=== PATIENT | male | born 1955 | race Caucasian/White ===

== ENCOUNTER 2016-07-26 16:19 | Emergency (ER) | payer MEDICAID, OTHER ==
--- NOTE | 2016-07-26 19:43 | C.PDOC ---
History Of Present Illness 61 yr old male with PMHx of right knee arthritis and chronic pain, presents to the ER for evaluation of right foot pain, gradually developing for the past week. Patient states the pain is localized to the dorsal aspect of the foot and worse with weight bearing. Patient denies direct trauma, injury, chest pain, SOB , dyspnea, legs swelling, back pain, calf pain, denies deformity, skin changes, weakness or numbness to B/L LEs. No risc factors for DVT, PE. Time Seen by Provider: 07/26/16 18:19 Chief Complaint (Nursing): Lower Extremity Problem/Injury History Per: Patient History/Exam Limitations: no limitations Onset/Duration Of Symptoms: Gradual (Past week) Current Symptoms Are (Timing): Still Present Recent travel outside of the [place]: No Past Medical History Reviewed: Historical Data, Nursing Documentation, Vital Signs Vital Signs: Last Vital Signs Temp 98.1 F 07/26/16 20:44 Pulse 72 07/26/16 20:44 Resp 17 07/26/16 20:44 BP 122/72 07/26/16 20:44 Pulse Ox 96 07/26/16 20:48 - Medical History PMH: Arthritis, HTN Surgical History: Tonsillectomy Family History: States: Hypertension - Social History Hx Tobacco Use: No Hx Alcohol Use: Yes Hx Substance Use: No - Immunization History Hx Tetanus Toxoid Vaccination: No Hx Influenza Vaccination: No Hx Pneumococcal Vaccination: No Review Of Systems Except As Marked, All Systems Reviewed And Found Negative. Cardiovascular: Negative for: Chest Pain Respiratory: Negative for: Shortness of Breath Musculoskeletal: Positive for: Foot Pain (Right foot). Negative for: Back Pain , Leg Pain Neurological: Negative for: Weakness, Numbness Physical Exam - Physical Exam Appears: Well, Non-toxic, No Acute Distress Skin: Normal Color, Warm, No Rash, No Ecchymosis Head: Atraumatic, Normacephalic Extremity: Normal ROM (Right foot), Tenderness (Right foot over 5th MTB with nos edema. No cellulitis, no palpable deformity.), No Pedal Edema, No Calf Tenderness (Right), No Deformity, No Swelling Neurological/Psych: Oriented x3, Normal Speech, Normal Motor, Normal Sensation, Normal Reflexes ED Course And Treatment O2 Sat by Pulse Oximetry: 96 - Other Rad X-Ray - Right Foot X-Ray: Interpreted by Me, Viewed By Me Interpretation: (+) DJD, no acute fx or dislocation Progress Note: On re-eavluation, pt is afebrile, hemodynamicaly stable. Non- toxic. Ambulatory in ED with stable gait. Right foot/anmkle: FAROM, no neurovascular deficits, no clelulitis, no calf pain. neurologicaly intact. Xray review and c/w DJD, arthralgia/arthritis. Pt advised. ref. to F/u with finance professor in 2-3 days for re-eval. return if any new changes, Medical Decision Making Medical Decision Making: PLAN: * X-Ray - Right Foot * Tramadol PO * Prednisone PO Disposition Counseled Patient/Family Regarding: Studies Performed, Diagnosis, Need For Followup, Rx Given - Disposition Referrals: Podiatry Clinic [Outside] Disposition: HOME/ ROUTINE Disposition Time: 19:10 Condition: GOOD Additional Instructions: Follow up with Continuous Miner Operator in 2-3 days for re-evaluation. Return to ED if any worsening or new changes. 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 - Scribe Statement The provider has reviewed the documentation as recorded by the Scribe Aga Menjivar All medical record entries made by the Attilaibe were at my direction and personally dictated by me. I have reviewed the chart and agree that the record accurately reflects my personal performance of the history, physical exam, medical decision making, and the department course for this patient. I have also personally directed, reviewed, and agree with the discharge instructions and disposition.
[2016-07-26 20:45] VITALS: BP 122/72; PULSE 72; RESP 17; TEMP 98.1
[2016-07-26 20:46] VITALS: O2SAT 96
--- NOTE | 2016-07-27 09:57 | RAD ---
PROCEDURE: Right Foot Radiographs. HISTORY: pain COMPARISON: None. FINDINGS: BONES: Normal. No fracture. JOINTS: Normal. SOFT TISSUES: Mild soft tissue swelling and vascular calcification are noted. OTHER FINDINGS: None. IMPRESSION: No evidence of acute fracture or dislocation. Mild soft tissue swelling and vascular calcification are noted.
== END 2016-07-26 20:47 | disposition home or self-care (01) ==
LOC: C.ER 16:19
DX: M25.571 Pain in right ankle and joints of right foot (principal)

== ENCOUNTER 2016-08-08 12:55 | Emergency (ER) | payer MEDICAID, OTHER ==
[2016-08-08 13:02] VITALS: TEMP 98.2
--- NOTE | 2016-08-08 13:46 | RAD ---
PROCEDURE: Radiographs of the left great toe. COMPARISON: None available FINDINGS: BONES: No acute displaced fracture identified. JOINTS: No dislocation. SOFT TISSUES: Mild soft tissue swelling. Vascular calcifications. Soft tissue calcifications noted within the soft tissues at the level the proximal 2nd and 3rd metatarsals. OTHER FINDINGS: None. IMPRESSION: Mild soft tissue swelling. No acute findings. Correlate clinically.
--- NOTE | 2016-08-08 14:24 | C.PDOC ---
History Of Present Illness 61 year old patient, with a past medical history of arthritis and hypertension, presents to the ED complaining of left great toe pain for the past 4 days. Patient has pain to his left podagra. There is increased pain and inflammation to the region. Patient is requesting a refill of his hypertension medication of Bisamol 5 mg from the [place] for his history of captopril cough. Patient denies trauma, history of gout, fever, numbness, or weakness. Time Seen by Provider: 08/08/16 13:17 Chief Complaint (Nursing): Lower Extremity Problem/Injury History Per: Patient History/Exam Limitations: no limitations Onset/Duration Of Symptoms: Days (4) Current Symptoms Are (Timing): Still Present Severity: Mild Pain Scale Rating Of: 3 Recent travel outside of the [place]: No Past Medical History Reviewed: Historical Data, Nursing Documentation, Vital Signs Vital Signs: Last Vital Signs Temp 98.2 F 08/08/16 12:58 Pulse 82 08/08/16 14:51 Resp 17 08/08/16 14:51 BP 129/68 08/08/16 14:51 Pulse Ox 97 08/08/16 15:23 - Medical History PMH: Arthritis, HTN Surgical History: Tonsillectomy Family History: States: Hypertension - Social History Hx Tobacco Use: No Hx Alcohol Use: Yes Hx Substance Use: No - Immunization History Hx Tetanus Toxoid Vaccination: No Hx Influenza Vaccination: No Hx Pneumococcal Vaccination: No Review Of Systems Except As Marked, All Systems Reviewed And Found Negative. Constitutional: Negative for: Fever Neurological: Negative for: Weakness, Numbness Physical Exam - Physical Exam Appears: Non-toxic, No Acute Distress Skin: Warm, Dry Head: Atraumatic, Normacephalic Eye(s): bilateral: PERRL, EOMI Neck: Normal ROM, Supple Chest: Symmetrical Cardiovascular: Rhythm Regular Respiratory: No Accessory Muscle Use Back: Normal Inspection Extremity: Normal ROM, No Calf Tenderness, Capillary Refill (<2 seconds), Swelling (left podagra (+)erythema) ED Course And Treatment O2 Sat by Pulse Oximetry: 97 (RA) Pulse Ox Interpretation: Normal - Other Rad L great toe X-Ray: Interpreted by Me (neg) Progress Note: Plan: -Colocrys, Indocin. -Left great toe xray Medical Decision Making Medical Decision Making: L podagra pain and swelling, no trauma, classically c/w gouty arthritis- no h/o same. improved with colchicine and indomethacin Disposition Doctor Will See Patient In The: Office Counseled Patient/Family Regarding: Studies Performed, Diagnosis - Disposition Referrals: [facility] [Outside] Disposition: HOME/ ROUTINE Disposition Time: 14:23 Condition: GOOD Additional Instructions: Colchicine 0.6 mg (para attackes acudo de la gota) [place] tableta cada 2 horas hasta Ud tiene diarrhea (maximum 4 mas hoy) Indomethacin 50 mg cada 8 horas para dolor en 2 semanas empieza james Allopurinol 100 mg diario para PREVENIR attackes de la Gota Hipertension: Losartan 50 mg diario Sigue en la Clinica en 2-3 meses para re-evaluacion. Prescriptions: Colchicine 0.6 mg PO DAILY #20 capsule Losartan [Cozaar] 1 tab PO DAILY #30 tab Indomethacin [Indocin] 50 mg PO TID PRN #20 cap PRN Reason: Pain, Moderate (4-7) Allopurinol [Zyloprim] 100 mg PO DAILY #30 tab Instructions: Gout (ED) Print Language: BURKINAN - Clinical Impression Clinical Impression: Gouty arthritis of toe of left foot - Scribe Statement The provider has reviewed the documentation as recorded by the Tom Garcias Provider Attestation: All medical record entries made by the Scribe were at my direction and personally dictated by me. I have reviewed the chart and agree that the record accurately reflects my personal performance of the history, physical exam, medical decision making, and the department course for this patient. I have also personally directed, reviewed, and agree with the discharge instructions and disposition.
[2016-08-08 14:54] VITALS: BP 129/68; PULSE 82; RESP 17
[2016-08-08 15:23] VITALS: O2SAT 97
== END 2016-08-08 14:55 | disposition home or self-care (01) ==
LOC: C.ER 12:55
DX: M10.9 Gout, unspecified (principal)

== ENCOUNTER 2016-09-30 12:42 | Emergency (ER) | payer MEDICAID, OTHER ==
[2016-09-30 13:14] VITALS: O2SAT 100
--- NOTE | 2016-09-30 13:40 | C.PDOC ---
History Of Present Illness 61 y/o male presents with cough x3 days with productive yellow sputum, at times clear sputum. Denies fever, SOB. Pt also complaining of groin pain x2 days, right testicular pain radiating to groin. Denies discharge or dysuria. Time Seen by Provider: 09/30/16 13:19 Chief Complaint (Nursing): Cough, Cold, Congestion History Per: Patient History/Exam Limitations: no limitations Onset/Duration Of Symptoms: Days Current Symptoms Are (Timing): Still Present Severity: Mild Recent travel outside of the [place]: No Past Medical History Reviewed: Historical Data, Nursing Documentation, Vital Signs Vital Signs: Last Vital Signs Temp 97.8 F 09/30/16 13:11 Pulse 67 09/30/16 13:11 Resp 20 09/30/16 13:11 BP 153/76 H 09/30/16 13:11 Pulse Ox 100 09/30/16 14:13 - Medical History PMH: Arthritis, HTN Surgical History: Tonsillectomy Family History: States: Hypertension - Social History Hx Tobacco Use: No Hx Alcohol Use: Yes Hx Substance Use: No - Immunization History Hx Tetanus Toxoid Vaccination: No Hx Influenza Vaccination: No Hx Pneumococcal Vaccination: No Review Of Systems Constitutional: Negative for: Fever Respiratory: Positive for: Cough, Sputum. Negative for: Shortness of Breath Genitourinary: Positive for: Other (groin pain). Negative for: Dysuria, Penile Discharge Physical Exam - Physical Exam Additional Physical Exam Comments: Constitutional: No acute distress. Head: Normocephalic. Atraumatic. Cardiovascular: Regular rate. Radial pulse 2+ bilaterally. Chest: No tenderness. Respiratory: Clear to auscultation bilaterally. GI: Soft. Nontender. Nondistended. : No testicular tenderness. Normal exam. Back: No CVA tenderness. Musculoskeletal: No tenderness or swelling of extremities. Skin: No rash. Neurologic: Alert, no focal deficit. ED Course And Treatment O2 Sat by Pulse Oximetry: 100 (room air) Pulse Ox Interpretation: Normal Medical Decision Making Medical Decision Making: LUNGS: No focal consolidation. Please note that chest x-ray has limited sensitivity for the detection of pulmonary masses. PLEURA: No significant pleural effusion identified. No definite pneumothorax . CARDIOVASCULAR: Heart size appears within normal limits. Atherosclerotic calcifications of the aortic knob. OSSEOUS STRUCTURES: Degenerative changes of the spine. VISUALIZED UPPER ABDOMEN: Unremarkable. OTHER FINDINGS: None. IMPRESSION: No focal consolidation, significant pleural effusion, or definite pneumothorax identified. FINDINGS: RIGHT TESTICLE: Measures 3.7 x 1.8 x 2.6 cm. Homogeneous echotexture. Blood flow is demonstrated. RIGHT EPIDIDYMIS: Measures approximately 1.4 x 1.1 x 1.7 cm. LEFT TESTICLE: Measures 3.5 x 1.6 x 2.5 cm. Homogeneous echotexture. Blood flow is demonstrated. LEFT EPIDIDYMIS: Measures approximately 1.0 x 1.1 x 1.3 cm. HYDROCELE: Small right-sided hydrocele. VARICOCELE: None. OTHER FINDINGS: None. IMPRESSION: Small right-sided hydrocele. Patient in no distress. Discharged home, f/u Urology and PMD, return to ER for worsening pain, fever, dyspnea. Disposition - Disposition Referrals: Juan M Espinoza MD [Staff Provider] - Disposition: HOME/ ROUTINE Disposition Time: 15:32 Condition: STABLE Instructions: Upper Respiratory Infection (ED), Hydrocele (ED) - Clinical Impression Clinical Impression: Upper respiratory infection, Hydrocele - Scribe Statement The provider has reviewed the documentation as recorded by the Tom Jeong Provider Attestation: All medical record entries made by the Tom were at my direction and personally dictated by me. I have reviewed the chart and agree that the record accurately reflects my personal performance of the history, physical exam, medical decision making, and the department course for this patient. I have also personally directed, reviewed, and agree with the discharge instructions and disposition.
--- NOTE | 2016-09-30 14:10 | RAD ---
HISTORY: cough COMPARISON: Chest x-ray performed 02/24/15 TECHNIQUE: Chest PA and lateral FINDINGS: LUNGS: No focal consolidation. Please note that chest x-ray has limited sensitivity for the detection of pulmonary masses. PLEURA: No significant pleural effusion identified. No definite pneumothorax . CARDIOVASCULAR: Heart size appears within normal limits. Atherosclerotic calcifications of the aortic knob. OSSEOUS STRUCTURES: Degenerative changes of the spine. VISUALIZED UPPER ABDOMEN: Unremarkable. OTHER FINDINGS: None. IMPRESSION: No focal consolidation, significant pleural effusion, or definite pneumothorax identified.
--- NOTE | 2016-09-30 15:02 | US ---
HISTORY: R testicular pain TECHNIQUE: Realtime sonography through the scrotum with color and doppler flow. COMPARISON: None available. FINDINGS: RIGHT TESTICLE: Measures 3.7 x 1.8 x 2.6 cm. Homogeneous echotexture. Blood flow is demonstrated. RIGHT EPIDIDYMIS: Measures approximately 1.4 x 1.1 x 1.7 cm. LEFT TESTICLE: Measures 3.5 x 1.6 x 2.5 cm. Homogeneous echotexture. Blood flow is demonstrated. LEFT EPIDIDYMIS: Measures approximately 1.0 x 1.1 x 1.3 cm. HYDROCELE: Small right-sided hydrocele. VARICOCELE: None. OTHER FINDINGS: None. IMPRESSION: Small right-sided hydrocele.
[2016-09-30 16:09] VITALS: BP 165/90; PULSE 72; RESP 18; TEMP 98.7
== END 2016-09-30 15:58 | disposition home or self-care (01) ==
LOC: C.ER 12:42
DX: J06.9 Acute upper respiratory infection, unspecified (principal); N43.3 Hydrocele, unspecified

== ENCOUNTER 2016-11-01 16:08 | Emergency (ER) | payer OTHER ==
[2016-11-01 16:13] VITALS: BMI 29.3
[2016-11-01 16:27] VITALS: TEMP 98.1; O2SAT 98
--- NOTE | 2016-11-01 18:01 | C.PDOC ---
History Of Present Illness 61 y/o male with history of chronic knee pain and gout complains of left knee pain which onset yesterday. Pt denies injury, weakness, numbness or any other complaints. Time Seen by Provider: 11/01/16 16:50 Chief Complaint (Nursing): Lower Extremity Problem/Injury History Per: Patient History/Exam Limitations: no limitations Onset/Duration Of Symptoms: Hrs Current Symptoms Are (Timing): Still Present Severity: Moderate Recent travel outside of the [place]: No Past Medical History Reviewed: Historical Data, Nursing Documentation, Vital Signs Vital Signs: Last Vital Signs Temp 98.1 F 11/01/16 16:21 Pulse 86 11/01/16 18:26 Resp 75 H 11/01/16 18:26 BP 136/86 11/01/16 18:26 Pulse Ox 98 11/01/16 18:26 - Medical History PMH: Arthritis, HTN Surgical History: Tonsillectomy Family History: States: Hypertension - Social History Hx Tobacco Use: No Hx Alcohol Use: Yes Hx Substance Use: No - Immunization History Hx Tetanus Toxoid Vaccination: No Hx Influenza Vaccination: No Hx Pneumococcal Vaccination: No Review Of Systems Musculoskeletal: Positive for: Other (left lmee [aom) Neurological: Negative for: Weakness, Numbness Physical Exam - Physical Exam Appears: Non-toxic, No Acute Distress Skin: Warm, Dry, No Rash Head: Atraumatic, Normacephalic Eye(s): bilateral: Normal Inspection, EOMI Nose: Normal Oral Mucosa: Moist Chest: Symmetrical Cardiovascular: Rhythm Regular, No Murmur Respiratory: Normal Breath Sounds, No Rales, No Rhonchi, No Wheezing Extremity: Normal ROM, Tenderness (diffuse left knee tenderness), No Calf Tenderness, Swelling (mild), Other (no erythema) Extremity: Bilateral: Normal Color And Temperature Pulses: Left Dorsalis Pedis: Normal Neurological/Psych: Oriented x3, Normal Speech, Normal Motor, Normal Sensation ED Course And Treatment O2 Sat by Pulse Oximetry: 98 (room air) Pulse Ox Interpretation: Normal Progress Note: Plan: XR knee, toradol. On reassessment, patient is resting comfortably, and is in no acute distress. Patient was instructed to follow up with physician/clinic in 1-2 days for further evaluation. Disposition - Disposition Disposition: HOME/ ROUTINE Disposition Time: 18:00 Condition: STABLE Additional Instructions: Vaya a melgoza mdico o la clnica en 1-3 solis sin falta, para mas evaluacin. [place] los medicamentos acpo indicado. Volver a la jazmin de emergencia en cualquier momento si los sntomas persisten o empeoran. 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 - Scribe Statement The provider has reviewed the documentation as recorded by the Scribe Rajeev Jeong All medical record entries made by the Scribe were at my direction and personally dictated by me. I have reviewed the chart and agree that the record accurately reflects my personal performance of the history, physical exam, medical decision making, and the department course for this patient. I have also personally directed, reviewed, and agree with the discharge instructions and disposition.
[2016-11-01 18:27] VITALS: BP 136/86; PULSE 86; RESP 75
--- NOTE | 2016-11-02 09:55 | RAD ---
PROCEDURE: Left Knee Radiographs. HISTORY: Pain. COMPARISON: None. FINDINGS: BONES: . No fracture. JOINTS: Mild patellofemoral and medial femoral tibial joint space narrowing/ osteoarthritis. JOINT EFFUSION: None. OTHER FINDINGS: Quadriceps insertional enthesophyte soft tissues are full posterior to knee joint line - top normal variant versus popliteal cyst are some considerations. Atherosclerotic vascular calcifications IMPRESSION: No fracture. Senescent changes. Top normal soft tissue prominence versus possible a popliteal cyst. Consider ultrasound or MRI
== END 2016-11-01 18:27 | disposition home or self-care (01) ==
LOC: C.ER 16:08
DX: M17.12 Unilateral primary osteoarthritis, left knee (principal); G89.29 Other chronic pain; M25.562 Pain in left knee
CPT/HCPCS: 73562; 96372; 99285; J1885

== ENCOUNTER 2016-12-08 15:47 | Emergency (ER) | payer OTHER ==
[2016-12-08 15:48] VITALS: BMI 29.3
[2016-12-08] MEDS ORDERED: DiphenhydrAMINE 50 mg/ml Inj IVP STA (16:11)
[2016-12-08] MEDS ORDERED: Sodium Chloride 0.9% 1,000 ML IV ONE (16:11)
--- NOTE | 2016-12-08 16:16 | C.PDOC ---
History Of Present Illness 61 y/o male presents to ED with complaints of headache and right upper eyelid and scalp pimples. Patient states eyelid pimple could be infection and reports rash on scalp. Patient has been taking penicillin for rash on scalp but denies taking pain medication, nausea, vomiting, fever, chills, neuro symptoms or any other complaints at this time. Time Seen by Provider: 12/08/16 16:04 Chief Complaint (Nursing): Headache History Per: Patient History/Exam Limitations: no limitations Onset/Duration Of Symptoms: Days Current Symptoms Are (Timing): Still Present Quality: Pressure Preceeding Symptoms: None Recent travel outside of the [place]: No Past Medical History Reviewed: Historical Data, Nursing Documentation, Vital Signs Vital Signs: Last Vital Signs Temp 98.2 F 12/08/16 15:51 Pulse 95 H 12/08/16 15:51 Resp 16 12/08/16 15:51 BP 127/82 12/08/16 15:51 Pulse Ox 97 12/08/16 17:50 - Medical History PMH: Arthritis, HTN Surgical History: Tonsillectomy Family History: States: No Known Family Hx, Hypertension - Social History Hx Tobacco Use: No Hx Alcohol Use: Yes Hx Substance Use: No - Immunization History Hx Tetanus Toxoid Vaccination: No Hx Influenza Vaccination: No Hx Pneumococcal Vaccination: No Review Of Systems Except As Marked, All Systems Reviewed And Found Negative. Constitutional: Negative for: Fever, Chills Cardiovascular: Negative for: Chest Pain Gastrointestinal: Negative for: Nausea, Vomiting, Diarrhea Skin: Positive for: Rash Neurological: Positive for: Headache. Negative for: Weakness, Numbness, Dizziness Physical Exam - Physical Exam Appears: Non-toxic, No Acute Distress Skin: Normal Color, Warm, Dry, No Rash Head: Normacephalic, Other (Scalp pimple on top of head) Eye(s): bilateral: Normal Inspection, PERRL, EOMI, right: Other (Right upper eyelid pimple) Oral Mucosa: Moist Throat: Normal, No Erythema Chest: Symmetrical Cardiovascular: Rhythm Regular Respiratory: Normal Breath Sounds, No Rales, No Rhonchi, No Wheezing Extremity: Normal ROM, Capillary Refill (<2 seconds) Neurological/Psych: Oriented x3, Normal Speech, Normal Cognition, Normal Motor, Normal Sensation ED Course And Treatment - Laboratory Results Result Diagrams: 12/08/16 16:21 12/08/16 16:21 Lab Interpretation: Normal O2 Sat by Pulse Oximetry: 97 (RA) Pulse Ox Interpretation: Normal - CT Scan/US No standard instances Other Rad Studies (CT/US): Read By Radiologist, Radiology Report Reviewed CT/US Interpretation: FINDINGS: HEMORRHAGE: No intracranial hemorrhage. BRAIN : No mass effect or edema. No atrophy or chronic microvascular ischemic changes. VENTRICLES: Unremarkable. No hydrocephalus. CALVARIUM: Unremarkable. PARANASAL SINUSES: Unremarkable as visualized. No significant inflammatory changes. MASTOID AIR CELLS: Unremarkable as visualized. No inflammatory changes. OTHER FINDINGS: None. IMPRESSION: No acute intracranial abnormalities. No significant findings to account for the clinical presentation. Progress Note: Treated with IVF NSS, benadryl and reglan. On re-evaluation feeling better, neuro intact, ambulating with steady gait Reassessment Condition: Improved Medical Decision Making Medical Decision Making: Plan: * Blood work * CT head Disposition Counseled Patient/Family Regarding: Studies Performed, Diagnosis, Need For Followup, Rx Given - Disposition Referrals: [facility] [Outside] [facility] [Outside] Disposition: HOME/ ROUTINE Disposition Time: 18:00 Condition: IMPROVED Prescriptions: Acetaminophen/Butalbital/Caf [Fioricet] 1 tab PO BID PRN #10 tab PRN Reason: Headache Instructions: General Headache (ED) Forms: [facility] (Yakut) Print Language: KOREAN - POA Present On Arrival: None - Clinical Impression Clinical Impression: Headache - Scribe Statement The provider has reviewed the documentation as recorded by the Tom Cristobal All medical record entries made by the Attilaibvivi were at my direction and personally dictated by me. I have reviewed the chart and agree that the record accurately reflects my personal performance of the history, physical exam, medical decision making, and the department course for this patient. I have also personally directed, reviewed, and agree with the discharge instructions and disposition.
[2016-12-08 16:27] LABS: BASO # 0.1 K/uL (0.0-0.2); BASO % 1.5 % (0.0-2.0); EOS # 0.1 K/uL (0.0-0.7); EOS % 2.7 % (0.0-4.0); HEMATOCRIT 40.6 % (35.0-51.0); LYMPH # 1.7 K/uL (1.0-4.3); LYMPH % 33.3 % (20.0-40.0); MEAN CELL VOLUME 86.8 fL (80.0-94.0); MEAN CORPUSCULAR HEMOGLOBIN 29.1 pg (27.0-31.0); MEAN CORPUSCULAR HGB CONC 33.6 g/dL (33.0-37.0); MEAN PLATELET VOLUME 8.8 fL (7.2-11.7); MONO # 0.4 K/uL (0.0-0.8); MONO % 8.4 % (0.0-10.0); RED CELL DISTRIBUTION WIDTH 13.4 % (11.5-14.5); WHITE BLOOD COUNT 5.2 K/uL (4.8-10.8)
[2016-12-08] MEDS ORDERED: Sodium Chloride 0.9% 1,000 ML ONE (16:30)
[2016-12-08] MEDS ORDERED: DiphenhydrAMINE 50 mg/ml Inj ONE (16:30)
[2016-12-08 16:34] LABS: CHLORIDE 103 mmol/L (98-107)
[2016-12-08 16:35] LABS: POTASSIUM 4.1 mmol/L (3.6-5.2); SODIUM 139 mmol/L (132-148)
[2016-12-08 16:37] LABS: AST/SGOT 21 U/L (17-59); BILIRUBIN,TOTAL 0.5 mg/dL (0.2-1.3); CARBON DIOXIDE 26 mmol/L (22-30); GFR AFRICAN-AMERICAN > 60
[2016-12-08 16:38] LABS: ALB/GLOB RATIO 1.3 (1.0-2.1); ALKALINE PHOSPHATASE 75 U/L (38-126); ALT/SGPT 31 U/L (21-72); BLOOD UREA NITROGEN 13 mg/dL (9-20); CALCIUM 9.1 mg/dl (8.6-10.4); GLUCOSE,RANDOM 124 mg/dL (75-110); TOTAL PROTEIN 7.2 g/dL (6.3-8.3)
--- NOTE | 2016-12-08 17:31 | CT ---
PROCEDURE: CT HEAD WITHOUT CONTRAST. HISTORY: Headache, blurred vision COMPARISON: None available. TECHNIQUE: Axial computed tomography images were obtained through the head/brain without intravenous contrast. Coronal and sagittal reconstructed images. Radiation dose: Total exam DLP = 975.84 mGy-cm. This CT exam was performed using one or more of the following dose reduction techniques: Automated exposure control, adjustment of the mA and/or kV according to patient size, and/or use of iterative reconstruction technique. FINDINGS: HEMORRHAGE: No intracranial hemorrhage. BRAIN: No mass effect or edema. No atrophy or chronic microvascular ischemic changes. VENTRICLES: Unremarkable. No hydrocephalus. CALVARIUM: Unremarkable. PARANASAL SINUSES: Unremarkable as visualized. No significant inflammatory changes. MASTOID AIR CELLS: Unremarkable as visualized. No inflammatory changes. OTHER FINDINGS: None. IMPRESSION: No acute intracranial abnormalities. No significant findings to account for the clinical presentation.
[2016-12-08 18:21] VITALS: BP 113/69; PULSE 65; RESP 18; TEMP 97.2; O2SAT 100
== END 2016-12-08 18:15 | disposition home or self-care (01) ==
LOC: C.ER 15:47
DX: R51 Headache (principal)
CPT/HCPCS: 70450; 80053; 85025; 96361; 96374; 96375; 99284; J1200; J2765; J7040

== ENCOUNTER 2017-01-09 18:11 | Emergency (ER) | payer OTHER ==
[2017-01-09 18:12] VITALS: BMI 29.3
[2017-01-09 18:21] VITALS: BP 142/80; PULSE 104; RESP 18; TEMP 99; O2SAT 98
--- NOTE | 2017-01-09 19:35 | C.PDOC ---
History Of Present Illness 61yo male with past medical history of gout, presents to the ED for evaluation of right great toe pain and swelling for the past 2 days. He denies any fever and states he had similar symptoms during past episodes. Patient states he is compliant with his home medications for gout. He denies any other medical complaints. Time Seen by Provider: 01/09/17 19:10 Chief Complaint (Nursing): Lower Extremity Problem/Injury History Per: Patient History/Exam Limitations: no limitations Onset/Duration Of Symptoms: Days (2) Current Symptoms Are (Timing): Gone Recent travel outside of the [place]: No Additional History Per: Patient Past Medical History Reviewed: Historical Data, Nursing Documentation, Vital Signs Vital Signs: Last Vital Signs Temp 99 F 01/09/17 18:18 Pulse 104 H 01/09/17 18:18 Resp 18 01/09/17 18:18 BP 142/80 01/09/17 18:18 Pulse Ox 98 01/10/17 09:27 - Medical History PMH: Arthritis, HTN Other PMH: gout Surgical History: Tonsillectomy Family History: States: Hypertension - Social History Hx Tobacco Use: No Hx Alcohol Use: No Hx Substance Use: No - Immunization History Hx Tetanus Toxoid Vaccination: No Hx Influenza Vaccination: No Hx Pneumococcal Vaccination: No Review Of Systems Constitutional: Negative for: Fever Musculoskeletal: Positive for: Foot Pain (right great toe pain) Physical Exam - Physical Exam Additional Physical Exam Comments: Constitutional: No acute distress. wdwn Cardiovascular: Regular rate and rhythm. Respiratory: Clear to auscultation bilaterally. Musculoskeletal: DP Pulses 2+. Swelling, erythema and tenderness to lateral aspect of right great toe. Tenderness in MTP joint of right great toe. Decreased ROM due to pain. Discolored and broken nail noted to right big toe. Neurologic: Alert, no focal deficit. ED Course And Treatment O2 Sat by Pulse Oximetry: 98 (RA) Pulse Ox Interpretation: Normal Medical Decision Making Medical Decision Making: Impression: 61yo male with history of gout presents w/ pain to right great toe Plan: -- Toradol 30mg IM pt eloped from ED prior to re-evaluation of pain level and discharge. Disposition - Disposition Disposition: ELOPEMENT - ER ONLY Disposition Time: 20:00 Condition: STABLE Forms: [employer] (Marshallese) - Clinical Impression Clinical Impression: Pain of right great toe - PA / FREIGHT CLERK / Resident Statement MD/DO has reviewed & agrees with the documentation as recorded. - Scribe Statement The provider has reviewed the documentation as recorded by the Scribe Klaudia Steele All medical record entries made by the Tom were at my direction and personally dictated by me. I have reviewed the chart and agree that the record accurately reflects my personal performance of the history, physical exam, medical decision making, and the department course for this patient. I have also personally directed, reviewed, and agree with the discharge instructions and disposition.
== END 2017-01-09 19:10 | disposition left against medical advice (07) ==
LOC: C.ER 18:11
DX: M79.674 Pain in right toe(s) (principal)
CPT/HCPCS: 96372; 99283; J1885

== ENCOUNTER 2017-04-22 16:26 | Emergency (ER) | payer OTHER ==
[2017-04-22 16:26] VITALS: BMI 29.3
[2017-04-22 16:38] VITALS: BP 154/79; PULSE 90; RESP 18; TEMP 98.6; O2SAT 98
--- NOTE | 2017-04-22 17:05 | C.PDOC ---
History Of Present Illness 61 year old male presents to the ER complaining of a painful bump to the left ear which has been present for 3 days. Patient denies any discharge and injury. Patient has no other medical complaints. Chief Complaint (Nursing): ENT Problem History Per: Patient History/Exam Limitations: no limitations Onset/Duration Of Symptoms: Days Current Symptoms Are (Timing): Still Present Severity: Moderate Past Medical History Reviewed: Historical Data, Nursing Documentation, Vital Signs Vital Signs: Last Vital Signs Temp 98.6 F 04/22/17 16:35 Pulse 90 04/22/17 16:35 Resp 18 04/22/17 16:35 BP 154/79 H 04/22/17 16:35 Pulse Ox 98 04/22/17 18:24 - Medical History PMH: Arthritis, HTN Surgical History: Tonsillectomy Family History: States: Hypertension - Social History Hx Tobacco Use: No Hx Alcohol Use: Yes Hx Substance Use: No - Immunization History Hx Tetanus Toxoid Vaccination: No Hx Influenza Vaccination: Yes Hx Pneumococcal Vaccination: No Review Of Systems Except As Marked, All Systems Reviewed And Found Negative. ENT: Positive for: Ear Pain (painful bump to left ear). Negative for: Ear Discharge Neurological: Negative for: Weakness, Numbness Physical Exam - Physical Exam Appears: Non-toxic, No Acute Distress Skin: Normal Color, Warm Head: Atraumatic, Normacephalic Eye(s): bilateral: Normal Inspection Ear(s): Left: Other ( pinna upper middle area has a fluctuant nodule), Bilateral : Normal (normal TM) Nose: Normal Oral Mucosa: Moist Neck: Normal, Normal ROM, Supple Chest: Symmetrical Cardiovascular: Rhythm Regular Respiratory: Normal Breath Sounds, No Accessory Muscle Use Extremity: Normal ROM Neurological/Psych: Oriented x3, Normal Speech Gait: Steady ED Course And Treatment O2 Sat by Pulse Oximetry: 98 (RA) Pulse Ox Interpretation: Normal Medical Decision Making Medical Decision Making: Area was drained of purulent material using 18 gauge needle aspiration. Patient tolerate well. Area cleansed. Advise to keep wound clean and dry Disposition Counseled Patient/Family Regarding: Diagnosis, Need For Followup - Disposition Disposition: HOME/ ROUTINE Disposition Time: 17:04 Condition: STABLE Instructions: Abscess Incision and Drainage (ED) Forms: [employer] (Kiswahili) Print Language: K[place]I - POA Present On Arrival: None - Clinical Impression Clinical Impression: Abscess of external ear - PA / ENTRY TABLE OPERATOR / Resident Statement MD/DO has reviewed & agrees with the documentation as recorded. - Scribe Statement The provider has reviewed the documentation as recorded by the Scribe Kamlesh White Provider Attestation All medical record entries made by the Scribe were at my direction and personally dictated by me. I have reviewed the chart and agree that the record accurately reflects my personal performance of the history, physical exam, medical decision making, and the department course for this patient. I have also personally directed, reviewed, and agree with the discharge instructions and disposition.
== END 2017-04-22 17:09 | disposition home or self-care (01) ==
LOC: C.ER 16:26
DX: H60.02 Abscess of left external ear (principal)

== ENCOUNTER 2018-07-15 11:45 | Emergency (ER) | payer OTHER ==
[2018-07-15 11:45] VITALS: BMI 29.3
[2018-07-15 12:03] VITALS: TEMP 98.4
[2018-07-15 13:10] LABS: SQUAMOUS EPITHIAL < 1 /hpf (0-5); URINE BACTERIA RARE (<OCC); URINE BILIRUBIN NEGATIVE (NEGATIVE); URINE BLOOD NEGATIVE (NEGATIVE); URINE CLARITY Clear (Clear); URINE COLOR Colorless (YELLOW); URINE GLUCOSE (UA) NORMAL (Normal); URINE LEUKOCYTE ESTERASE NEG Leu/uL (Negative); URINE PROTEIN NEGATIVE (NEGATIVE); URINE UROBILINOGEN NORMAL mg/dL (0.2-1.0)
--- NOTE | 2018-07-15 13:12 | C.PDOC ---
History Of Present Illness 63 year old male with PMHx of HTN, diabetes, gout, and gastritis presents for evaluation of rectal irritation or inflammation associated with gas and flatulence for 9 days. The patient reports rectal pain when he has a bowel movement. States the stool is "normal" (solid). Admits he has not had a colonoscopy or seen a specialist in the specialist. He also notes no prior similar symptoms. Denies fever, chills, recent changes in diet, abdominal pain, rectal bleeding, dysuria, urinary frequency and any other associated symptoms. Time Seen by Provider: 07/15/18 12:12 Chief Complaint (Nursing): GI Problem History Per: Patient, Medical Imaging Technologist (ELVIRA harvey) History/Exam Limitations: no limitations Onset/Duration Of Symptoms: Days (x9) Current Symptoms Are (Timing): Still Present Recent travel outside of the [place]: No Past Medical History Reviewed: Historical Data, Nursing Documentation, Vital Signs Vital Signs: Last Vital Signs Temp 98.4 F 07/15/18 11:57 Pulse 89 07/15/18 11:57 Resp 17 07/15/18 11:57 BP 161/87 H 07/15/18 11:57 Pulse Ox 99 07/15/18 11:57 - Medical History PMH: Arthritis, HTN Surgical History: Tonsillectomy Family History: States: Hypertension - Social History Hx Tobacco Use: No Hx Alcohol Use: Yes Hx Substance Use: No - Immunization History Hx Tetanus Toxoid Vaccination: No Hx Influenza Vaccination: Yes Hx Pneumococcal Vaccination: No Review Of Systems Except As Marked, All Systems Reviewed And Found Negative. Constitutional: Negative for: Fever, Chills, Other (recent changes in diet. ) Gastrointestinal: Positive for: Other ((+) pain with bowel movement. (-) rectal bleeding. (+) increased gas. (+) flatulence. ). Negative for: Abdominal Pain Physical Exam - Physical Exam Appears: Non-toxic, No Acute Distress Skin: Warm, Dry Head: Atraumatic, Normacephalic Eye(s): bilateral: Normal Inspection, EOMI Oral Mucosa: Moist Neck: Normal ROM, Supple Chest: Symmetrical, No Deformity Cardiovascular: Rhythm Regular Respiratory: Normal Breath Sounds, No Rales, No Rhonchi, No Wheezing Gastrointestinal/Abdominal: Normal Exam, Soft, No Tenderness, No Distention, No Guarding, No Rebound Rectal: Normal Exam, Rectal Tone, No Hemorrhoids, No Tenderness Extremity: Bilateral: Atraumatic, Normal Color And Temperature, Normal ROM Neurological/Psych: Oriented x3, Normal Speech, Normal Cognition ED Course And Treatment - Laboratory Results Lab Results: Urine Color Colorless (YELLOW) 07/15/18 12:48 Urine Clarity Clear (Clear) 07/15/18 12:48 Urine pH 7.0 (5.0-8.0) 07/15/18 12:48 Ur Specific [place] 1.005 (1.003-1.030) 07/15/18 12:48 Urine Protein Negative mg/dL (NEGATIVE) 07/15/18 12:48 Urine Glucose (UA) Normal mg/dL (Normal) 07/15/18 12:48 Urine Ketones Negative mg/dL (NEGATIVE) 07/15/18 12:48 Urine Blood Negative (NEGATIVE) 07/15/18 12:48 Urine Nitrate Negative (NEGATIVE) 07/15/18 12:48 Urine Bilirubin Negative (NEGATIVE) 07/15/18 12:48 Urine Urobilinogen Normal mg/dL (0.2-1.0) 07/15/18 12:48 Ur Leukocyte Esterase Neg [place]/uL (Negative) 07/15/18 12:48 Urine WBC (Auto) < 1 /hpf (0-5) 07/15/18 12:48 Ur Squamous Epith Cells < 1 /hpf (0-5) 07/15/18 12:48 Urine Bacteria Rare (<OCC) 07/15/18 12:48 O2 Sat by Pulse Oximetry: 99 (RA) Pulse Ox Interpretation: Normal - Other Rad Abd XR X-Ray: Interpreted by Me, Viewed By Me Interpretation: (+) FOS Progress Note: Pt has no pain now, only with BM. XR shows FOS, stool softner given. Advised to follow up with GI to have a colonoscopy. Case discussed with Dr Turner , agreed upon plan and discharge. Disposition - Disposition Referrals: Abhishek Field MD [Staff Provider] - Disposition: HOME/ ROUTINE Disposition Time: 13:30 Condition: STABLE Additional Instructions: Vaya a melgoza mdico o la clnica en 2-5 solis sin falta, para mas evaluacin. [place] los medicamentos capo indicado. Volver a la jazmin de emergencia en cualquier momento si los sntomas persisten o empeoran. Prescriptions: Docusate [Colace] 100 mg PO BID #14 cap Hydrocortisone-Pramoxine 1%-1% [Proctofoam] 1 applic TOP TID #15 aer Instructions: Acute Abdomen (Belly Pain), Adult (DC) Forms: [employer] (Khmer) Print Language: WELSH - Clinical Impression Clinical Impression: Rectal pain - PA / TINSEL MACHINE OPERATOR / Resident Statement MD/DO has reviewed & agrees with the documentation as recorded. - Scribe Statement The provider has reviewed the documentation as recorded by the Scribe (Dahlia Spencer) All medical record entries made by the Scribe were at my direction and personally dictated by me. I have reviewed the chart and agree that the record accurately reflects my personal performance of the history, physical exam, medic al decision making, and the department course for this patient. I have also personally directed, reviewed, and agree with the discharge instructions and disposition.
[2018-07-15 13:29] VITALS: BP 120/74; PULSE 61; RESP 18
[2018-07-15 13:31] VITALS: O2SAT 99
--- NOTE | 2018-07-15 16:09 | RAD ---
Date of service: 07/15/2018 HISTORY: pain COMPARISON: None available. TECHNIQUE: 1 view obtained. FINDINGS: BOWEL: No evidence of bowel obstruction. Moderate retained stool. No hepatic or splenic enlargement. No masses or abnormal intra-abdominal calcifications. BONES: Normal. OTHER FINDINGS: None. IMPRESSION: Retained feces. No bowel obstruction
== END 2018-07-15 13:57 | disposition home or self-care (01) ==
LOC: C.ER 11:45
DX: K62.89 Other specified diseases of anus and rectum (principal)